=== PATIENT | male | born 1960 | race Caucasian/White ===

== ENCOUNTER 2018-03-24 08:16 | Emergency (ER) | payer BC, OTHER ==
--- NOTE | 2018-03-24 10:37 | C.PDOC ---
History Of Present Illness 58yo male, comes to ER for evaluation of 1 week of worsening pain to his left sacral iliac region. 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 He took an unknown dose of Motrin 2 days ago, with no relief of pain. Otherwise, patient denies any lower extremity weakness, bowel or bladder dysfunction, numbness, tingling and offers no other medical complaints. Time Seen by Provider: 03/24/18 08:49 Chief Complaint (Nursing): Back Pain History Per: Patient History/Exam Limitations: no limitations Onset/Duration Of Symptoms: Days Current Symptoms Are (Timing): Still Present Quality Of Discomfort: "Pain" Associated Symptoms: denies: Incontinence, New Weakness, New Numbness Additional History Per: Patient Past Medical History Reviewed: Historical Data, Nursing Documentation, Vital Signs Vital Signs: Last Vital Signs Temp 97.8 F 03/24/18 10:42 Pulse 67 03/24/18 10:42 Resp 20 03/24/18 10:42 BP 157/84 H 03/24/18 10:42 Pulse Ox 97 03/24/18 10:42 - Medical History PMH: No Chronic Diseases, Seizures Denies: Chronic Kidney Disease Surgical History: No Surg Hx Family History: States: Unknown Family Hx - Social History Hx Tobacco Use: No Hx Alcohol Use: No Hx Substance Use: No - Immunization History Hx Tetanus Toxoid Vaccination: No Hx Influenza Vaccination: Yes Hx Pneumococcal Vaccination: No Review Of Systems Except As Marked, All Systems Reviewed And Found Negative. Genitourinary: Negative for: Incontinence Musculoskeletal: Positive for: Back Pain. Negative for: Leg Pain Neurological: Negative for: Weakness, Numbness Physical Exam - Physical Exam Appears: Non-toxic, No Acute Distress Skin: Warm, Dry Head: Atraumatic, Normacephalic Eye(s): bilateral: Normal Inspection Neck: Normal ROM, Supple Chest: Symmetrical Cardiovascular: Rhythm Regular Respiratory: Normal Breath Sounds Gastrointestinal/Abdominal: Soft, No Tenderness Back: No CVA Tenderness, No Vertebral Tenderness, No Decreased ROM, No Muscle Spasm, Paraspinal Tenderness (left sacral/iliac region tenderness), No Straight Leg Raising Extremity: Normal ROM, No Tenderness, No Pedal Edema, No Deformity, No Swelling Extremity: Bilateral: Atraumatic, Hips Non-Tender, No Pedal Edema, Normal Color And Temperature, Normal ROM Pulses: Left Dorsalis Pedis: Normal, Right Dorsalis Pedis: Normal Neurological/Psych: Oriented x3 ED Course And Treatment O2 Sat by Pulse Oximetry: 100 (RA) Pulse Ox Interpretation: Normal Medical Decision Making Medical Decision Making: L sacroiliac sprain vs Pyriformis syndrome, works lifting objects from the ground Disposition Doctor Will See Patient In The: Office Counseled Patient/Family Regarding: Studies Performed, Diagnosis - Disposition Referrals: Liudmila Mcallister MD [Medical Doctor] - Disposition: HOME/ ROUTINE Disposition Time: 10:36 Condition: GOOD Additional Instructions: sigue bolsa de hielo 1/2 hora por hora, nada caliente no sulaiman kristi caliente Ibuprofeno/Advil 400-600 mg cada 6 horas saad necessario no levanta nada pesada por 1 semana. Instructions: Sciatica, Muscle Strain, Low Back Pain in Adults Forms: [facility] (Macanese), Work Excuse Print Language: HEBREW - Clinical Impression Clinical Impression: Low back strain - Scribe Statement The provider has reviewed the documentation as recorded by the Alexander Lancaster Provider Attestation: All medical record entries made by the Scribe were at my direction and personally dictated by me. I have reviewed the chart and agree that the record accurately reflects my personal performance of the history, physical exam, medical decision making, and the department course for this patient. I have also personally directed, reviewed, and agree with the discharge instructions and disposition.
[2018-03-24 10:44] VITALS: BP 157/84; PULSE 67; RESP 20; TEMP 97.8
[2018-03-24 12:00] VITALS: O2SAT 100
== END 2018-03-24 10:48 | disposition home or self-care (01) ==
LOC: C.ER 08:16
DX: S39.012A Strain of muscle, fascia and tendon of lower back, initial encounter (principal); X50.0XXA Overexertion from strenuous movement or load, initial encounter
CPT/HCPCS: 96372; 99283; J1885

== ENCOUNTER 2018-05-09 09:00 | Emergency (ER) | payer BC ==
[2018-05-09 09:14] VITALS: BP 163/79; PULSE 83; RESP 18; TEMP 97.9; O2SAT 95
--- NOTE | 2018-05-09 09:36 | C.PDOC ---
History Of Present Illness 58 year old male patient with hx of epilepsy presents to the ER with c/o left buttock pain for x1 week. Patient reports the pain radiates down his left thigh. Patient denies dysuria, frequency, hematuria, bowel movement complications, weakness and numbness. Chief Complaint (Nursing): Back Pain History Per: Patient History/Exam Limitations: no limitations Onset/Duration Of Symptoms: Days (x1 week) Current Symptoms Are (Timing): Still Present Past Medical History Reviewed: Historical Data, Nursing Documentation, Vital Signs Vital Signs: Last Vital Signs Temp 97.9 F 05/09/18 09:30 Pulse 83 05/09/18 09:30 Resp 18 05/09/18 09:30 BP 163/79 H 05/09/18 09:30 Pulse Ox 95 05/09/18 10:26 - Medical History PMH: HTN, Seizures Other PMH: epilepsy Family History: States: Unknown Family Hx - Social History Hx Tobacco Use: No Hx Alcohol Use: No Hx Substance Use: No - Immunization History Hx Tetanus Toxoid Vaccination: No Hx Influenza Vaccination: No Hx Pneumococcal Vaccination: No Review Of Systems Except As Marked, All Systems Reviewed And Found Negative. Constitutional: Negative for: Weakness Genitourinary: Negative for: Dysuria, Frequency, Hematuria Musculoskeletal: Positive for: Leg Pain (left thigh pain from left buttock ), Other (left buttock pain ) Neurological: Negative for: Numbness Physical Exam - Physical Exam Appears: Non-toxic, No Acute Distress Skin: Normal Color, Warm, Dry Head: Normacephalic Respiratory: Other (speaking in full sentences) Gastrointestinal/Abdominal: Soft, No Tenderness Back: Normal Inspection, No CVA Tenderness, No Vertebral Tenderness, No Paraspinal Tenderness Extremity: Normal ROM (x4), No Tenderness, No Pedal Edema, No Calf Tenderness, Capillary Refill (<2 sec ), No Deformity, No Swelling Extremity: Bilateral: Atraumatic Pulses: Left Dorsalis Pedis: Normal, Right Dorsalis Pedis: Normal Neurological/Psych: Oriented x3, Normal Speech, Normal Motor, Normal Sensation Gait: Steady ED Course And Treatment O2 Sat by Pulse Oximetry: 95 (RA) Pulse Ox Interpretation: Normal Medical Decision Making Medical Decision Making: Impression: sciatica left leg Plans: -- Flexeril -- Toradol Reassess: Disposition - Disposition Referrals: [facility] [place]Outside] [facility] [Outside] [facility] [place] [Outside] Disposition: HOME/ ROUTINE Disposition Time: 10:15 Condition: GOOD Prescriptions: Cyclobenzaprine [Cyclobenzaprine HCl] 10 mg PO Q8 5 Days #15 tab Ibuprofen [Motrin] 600 mg PO Q6 #20 tab Forms: [employer] (Jamaican) - Clinical Impression Clinical Impression: Sciatica - Scribe Statement The provider has reviewed the documentation as recorded by the Alexander Greer Do Provider Attestation: All medical record entries made by the Alexander were at my direction and personally dictated by me. I have reviewed the chart and agree that the record accurately reflects my personal performance of the history, physical exam, medical decision making, and the department course for this patient. I have also personally directed, reviewed, and agree with the discharge instructions and disposition.
== END 2018-05-09 10:15 | disposition home or self-care (01) ==
LOC: C.ER 09:00
DX: M54.32 Sciatica, left side (principal)
CPT/HCPCS: 96372; 99283; J1885